=== PATIENT | female | born 1990 | race Caucasian/White ===

== ENCOUNTER 2023-02-27 13:32 | Emergency (ER) | payer OTHER ==
[2023-02-27] MEDS ORDERED: Ketorolac Tromethamine 30 MG/ML VIAL ONE (13:52)
== END 2023-02-27 14:10 | disposition home or self-care (01) ==
LOC: MADERS 13:32
DX: K02.9 Dental caries, unspecified (principal); K05.00 Acute gingivitis, plaque induced; Z87.891 Personal history of nicotine dependence
CPT/HCPCS: 99283; J1885